=== PATIENT | male | born 1965 | race Caucasian/White ===

== ENCOUNTER 2016-12-03 08:36 | Emergency (ER) | payer BC ==
[2016-12-03 09:33] LABS: RED BLOOD COUNT 5.6 M/UL (4.20-5.50); WHITE BLOOD COUNT 7.8 K/UL (4.5-11.0)
[2016-12-03 09:55] LABS: BUN/CREATININE RATIO 12 (0-10)
== END 2016-12-03 12:05 | disposition home or self-care (01) ==
LOC: ER1 08:36
PROVIDERS: Physician Assistant
DX: R49.0 Dysphonia (principal); F17.210 Nicotine dependence, cigarettes, uncomplicated; Z79.899 Other long term (current) drug therapy
CPT/HCPCS: 36415; 70491; 71260; 80053; 82550; 82553; 83874; 84443; 84484; 85025; 93005; 99285; J7050; Q9962